=== PATIENT | male | born 1990 | race Caucasian/White ===

== ENCOUNTER 2019-12-05 08:32 | Emergency (ER) | payer OTHER ==
[~2019-12-05] VITALS: Ht 170.2 cm; Wt 74.8 kg
[2019-12-05] MEDS ORDERED: NACL 0.9% 1,000 ML IV ONE (08:40)
--- NOTE | 2019-12-05 08:45 | NUR ---
DR MCKEE AT BEDSIDE EVLUATING PT.
[2019-12-05 08:47] VITALS: BP 129/73
--- NOTE | 2019-12-05 08:47 | NUR ---
SAFTEY PRECAUTIONS IN PLACE, ALL CORDS/CONTAINERS OR SAFTEY HAZARDS REMOVED FROM ROOM
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
--- NOTE | 2019-12-05 09:14 | NUR ---
GAVE BREAKFAST TRAY IN BED , PT EATING QUIETLY IN BED .
--- NOTE | 2019-12-05 09:15 | NUR ---
SITTER AT BEDSIDE.
[2019-12-05] MEDS ORDERED: LORazepam 1 MG TAB PO ONE (09:35)
[2019-12-05 09:51] LABS: BASOPHILS % (AUTO) 0.3 % (0.0-2.0); EOSINOPHILS # (AUTO) 0.1 K/uL (0-0.4); EOSINOPHILS % (AUTO) 0.7 % (0.0-4.0); HEMATOCRIT 39.9 % (36-52); HEMOGLOBIN 13.4 g/dL (12.0-18.0); LYMPHOCYTES # (AUTO) 1.7 K/uL (2.0-11.5); LYMPHOCYTES % (AUTO) 19.1 % (20.5-51.1); MEAN CORPUSCULAR HEMOGLOBIN 31 pg (27-31); MEAN CORPUSCULAR HGB CONC 34 g/dL (33-37); MONOCYTES # (AUTO) 1.1 K/uL (0.8-1.0); MONOCYTES % (AUTO) 12.2 % (1.7-9.3); NEUTROPHILS % (AUTO) 67.7 % (42.2-75.2); PLATELET COUNT (AUTO) 322 K/uL (140-450); RED CELL DISTRIBUTION WIDTH 13.2 % (11.6-13.7); WHITE BLOOD COUNT (AUTO) 8.8 K/uL (4.8-10.8)
[2019-12-05 09:59] LABS: CARBON DIOXIDE 22.1 mmol/L (21-32); CHLORIDE 107 mmol/L (98-107); CREATININE 1.3 mg/dL (0.6-1.3); GFR ARICAN-AMERICAN 85 mL/min (>90); GLUCOSE 108 mg/dL (74-106); POTASSIUM 3.1 mmol/L (3.5-5.1); SODIUM SERUM 146 mmol/L (136-145); UREA NITROGEN, BLOOD 15 mg/dL (7-18)
[2019-12-05 10:05] LABS: ALBUMIN 4.1 g/dL (3.4-5.0); ASPARTATE AMINOTRANSFERASE 41 U/L (15-37)
[2019-12-05 10:10] LABS: BARBITURATE, URINE NEGATIVE ng/ml (NEG <=200); BENZODIAZEPINE, URINE NEGATIVE ng/mL (NEG <=200); COCAINE, URINE NEGATIVE ng/mL (NEG <=300)
[2019-12-05 10:11] LABS: CANNABINOID, URINE POSITIVE ng/mL (NEG <=50); OPIATE, URINE NEGATIVE ng/mL (NEG <=2000)
[2019-12-05 10:12] LABS: PHENCYCLIDINE SCREEN,URINE NEGATIVE ng/mL (NEG <=25)
--- NOTE | 2019-12-05 10:15 | NUR ---
PT CALM AND COOPERATIVE. SITTER AT BEDSIDE
[2019-12-05 10:16] LABS: ACETAMINOPHEN < 0.5 ug/ml (10-30)
[2019-12-05 10:17] LABS: SALICYLATE < 2.8 mg/dL (2.8-20.0)
--- NOTE | 2019-12-05 10:52 | NUR ---
PT IN BED ON TELE PSYCH.
--- NOTE | 2019-12-05 12:00 | NUR ---
PT IN BED EATING, SITTER AT BEDSIDE
[2019-12-05 12:30] VITALS: BP 124/76
--- NOTE | 2019-12-05 12:30 | NUR ---
PT REMOVED FROM HOLD. ERMD AWARE
--- NOTE | 2019-12-05 12:30 | NUR ---
Layla contreras in [facility] - 12/05/19 at 1251 by [email or web address] PT IN BED EATING, SITTER AT BEDSIDE.
== END 2019-12-05 12:48 | disposition home or self-care (01) ==
LOC: MED 08:32 → EDBD 08:32 → MED 12:48
DX: R41.82 Altered mental status, unspecified (principal); F12.10 Cannabis abuse, uncomplicated; R41.0 Disorientation, unspecified; R45.1 Restlessness and agitation; F15.90 Other stimulant use, unspecified, uncomplicated
CPT/HCPCS: 36415; 80053; 80305; 85025; 96360; 96361; 99291; G0480; G0482; J7030

== ENCOUNTER 2019-12-06 08:18 | Emergency (ER) | payer OTHER ==
[~2019-12-06] VITALS: Ht 152.4 cm; Wt 77.1 kg
--- NOTE | 2019-12-06 08:22 | NUR ---
PT AMBULATED TO BED 6.
[2019-12-06 08:24] VITALS: BP 113/70
[2019-12-06] MEDS ORDERED: ACETAMINOPHEN 325 MG TAB PO ONE (08:30)
--- NOTE | 2019-12-06 08:30 | NUR ---
PT C/O RT LEG PAIN WITH SWELLING FOR ONE WEEK. DENIES TRAUMA/INJURY. DENIES N/V/D; SKIN IS PINK/WARM/DRY; AAOX4 WITH EVEN AND STEADY GAIT; HR EVEN AND REGULAR; PT DENIES ANY FEVER, CP, SOB, OR COUGH AT THIS TIME; PATIENT STATES PAIN OF 6/10 AT THIS TIME; VSS; PATIENT POSITIONED FOR COMFORT; HOB ELEVATED; BEDRAILS UP X1; BED DOWN. ER MD MADE AWARE OF PT STATUS.
--- NOTE | 2019-12-06 08:36 | NUR ---
RAD AT BEDSIDE
--- NOTE | 2019-12-06 08:38 | NUR ---
XRAY IS AT BEDSIDE.
[2019-12-06 09:13] VITALS: BP 108/68
== END 2019-12-06 09:13 | disposition home or self-care (01) ==
LOC: MED 08:18
DX: S93.401A Sprain of unspecified ligament of right ankle, initial encounter (principal); F15.90 Other stimulant use, unspecified, uncomplicated; X58.XXXA Exposure to other specified factors, initial encounter; Y93.89 Activity, other specified; Y92.89 Other specified places as the place of occurrence of the external cause; Y99.8 Other external cause status
CPT/HCPCS: 73590; 99283; Q0092